=== PATIENT | male | born 1965 | race Caucasian/White ===

== ENCOUNTER 2022-01-23 00:30 | Observation (INO) | payer BC ==
[2022-01-23] MEDS ORDERED: MORPHINE 4 MG/ML SYR ONE ×3 (00:53→11:59)
[2022-01-23] MEDS ORDERED: ONDANSETRON 4 MG/2 ML VIAL ONE ×3 (00:54→12:58)
[2022-01-23 01:46] LABS: Absolute Lymphocytes (CBC) 1.4 K/uL (0.7-4.9); Hematocrit 42.5 % (39.6-49.0); Lymphocytes % 9.8 % (15.3-44.8); MPV 7.2 fL (7.6-11.3); RBC Red Blood Cell Count 4.75 M/uL (4.33-5.43)
[2022-01-23 01:57] LABS: ALT/SGPT 26 U/L (12-78); AST/SGOT 12 U/L (15-37); Albumin 3.6 g/dL (3.4-5.0); Alkaline Phosphatase 80 U/L (45-117); BUN Blood Urea Nitrogen 10 mg/dL (7-18); Bicarbonate 20 mmol/L (21-32); Bilirubin Total 0.4 mg/dL (0.2-1.0); Glucose Level 145 mg/dL (74-106); Lipase 92 U/L (73-393); Potassium 3.2 mmol/L (3.5-5.1); Protein, Total 6.8 g/dL (6.4-8.2); Sodium Level 136 mmol/L (136-145)
[2022-01-23 02:07] LABS: Bilirubin Direct < 0.1 mg/dL (0-0.2)
--- NOTE | 2022-01-23 02:21 | ER ---
Nurse's Notes [facility] Name: Curtis Patel Age: 56 yrs Sex: Male : 1965 Arrival Date: 01/23/2022 Time: 00:33 Bed 13 Private MD: Diagnosis: Acute cholecystitis Presentation: 01/23 00:40 Chief complaint: Patient states: he is having severe upper right abdominal pain x 2 bb hours. Coronavirus screen: At this time, the client does not indicate any symptoms associated with coronavirus-19. Ebola Screen: No symptoms or risks identified at this time. Initial Sepsis Screen: Does the patient meet any 2 criteria? Yes Does the patient have a suspected source of infection? No. Patient's initial sepsis screen is negative. Risk Assessment: Do you want to hurt yourself or someone else? Patient reports no desire to harm self or others. Onset of symptoms was January 23, 2022. 00:40 Method Of Arrival: Wheelchair bb 00:40 Acuity: VICENTA 3 bb Historical: - Allergies: 00:41 No Known Allergies; bb - Home Meds: 00:41 None [Active]; bb - PMHx: 00:41 None; bb - Immunization history:: Pfizer x 3. - Social history:: Smoking status: Patient denies any tobacco usage or history of. - Family history:: not pertinent. - Hospitalizations: : No recent hospitalization is reported. Screenin:07 Abuse screen: Denies threats or abuse. Denies injuries from another. Nutritional tk1 screening: No deficits noted. Tuberculosis screening: No symptoms or risk factors identified. Fall Risk None identified. Assessment: 01:07 General: Appears distressed, uncomfortable, well groomed, well developed, well tk1 nourished, Behavior is cooperative, appropriate for age, restless. Pain: Complains of pain in epigastric area, right upper quadrant and right lower quadrant Pain does not radiate. Pain currently is 10 out of 10 on a pain scale. Quality of pain is described as sharp, Pain began 1 day ago. Is intermittent. Neuro: Level of Consciousness is awake, alert, obeys commands, Oriented to person, place, time, situation, Appropriate for age Burring Wheel Operator are equal bilaterally Moves all extremities. Gait is steady, Speech is normal, Facial symmetry appears normal, Pupils are PERRLA. Cardiovascular: Capillary refill < 3 seconds is brisk in bilateral. Respiratory: Airway is patent Trachea midline Respiratory effort is even, unlabored. GI: Bowel sounds present X 4 quads. Abdomen is tender to palpation in epigastric area, right upper quadrant and right lower quadrant Reports lower abdominal pain, upper abdominal pain. : No deficits noted. No signs and/or symptoms were reported regarding the genitourinary system. EENT: No deficits noted. No signs and/or symptoms were reported regarding the EENT system. Derm: No deficits noted. No signs and/or symptoms reported regarding the dermatologic system. Musculoskeletal: No deficits noted. No signs and/or symptoms reported regarding the musculoskeletal system. 01:32 Reassessment: Lab called, patient's blood hemolyzed. Needs a redraw. Done and sent tk1 specimens to lab. 02:04 Reassessment: Patient states, pain to abdomen is getting worse. tk1 02:45 Reassessment: Patient and/or family updated on plan of care and expected duration. Pain tk1 level reassessed. Patient is alert, oriented x 3, equal unlabored respirations, skin warm/dry/pink. Patient is alert/active/playful, equal unlabored respirations, skin warm/dry/pink. Pain: Complains of pain in abdomen Pain currently is 8 out of 10 on a pain scale. 04:16 Reassessment: Patient resting with eyes closed. Respirations even and unlabored. Easily tk1 aroused. States, pain is more tolerable. VSS. Will continue to monitor. 12:19 General: pt transferred to the O.R. 5 Vital Signs: 00:40 BP 134 / 84; Pulse 63; Resp 20 S; Temp 98.2(O); Pulse Ox 100% on R/A; Weight 82.55 kg bb (R); Height 5 ft. 10 in. (177.80 cm) (R); Pain 10/10; 01:31 Pain 9/10; tk1 02:04 BP 138 / 89 LA Supine (auto/reg); Pulse 63 MON; Resp 18; Pulse Ox 100% on R/A; Pain tk1 10/10; 02:36 Pain 8/10; tk1 02:55 Pain 8/10; tk1 00:40 Body Mass Index 26.11 (82.55 kg, 177.80 cm) Vitals: 04:52 Cardiac Rhythm Assessment Regular Sinus rhythm. tk1 ED Course: 00:33 Patient arrived in ED. ja2 00:40 Bulmaro Santiago MD is Attending Physician. rn 00:41 Triage completed. bb 00:41 Arm band placed on Patient placed in an exam room, on a stretcher, on pulse oximetry. bb Family accompanied patient. 00:47 Inserted saline lock: 20 gauge in right antecubital area, using aseptic technique. al4 Blood collected. 01:05 Miguelina Bragg is Primary Nurse. tk1 01:07 Patient has correct armband on for positive identification. Bed in low position. Call tk1 light in reach. Adult w/ patient. Pulse ox on. NIBP on. 01:07 No provider procedures requiring assistance completed. tk1 01:14 US Abdomen Limited In Process Unspecified. EDMS 01:20 CBC with Diff Sent. tk1 01:25 CT Abd/Pelvis - IV Contrast Only In Process Unspecified. EDMS 02:20 Rodolfo Drummond MD is Hospitalizing Provider. rn 02:36 SARS-COV-2 RT PCR (Document "Date of Onset" if Symptomatic) Sent. tk1 02:55 SARS-COV-2 RT PCR (Document "Date of Onset" if Symptomatic) Sent. tk1 03:32 instructor nurse on. tk1 04:16 IV is patent, with fluids infusing freely, with good blood return. tk1 Administered Medications: 00:55 Drug: morphine 4 mg Route: IVP; Rate: 2 mg/min; Infused Over: 2 mins; Site: right tk1 antecubital; 01:31 Follow up: Pain 9/10 Adult; Response: Pain is decreased; RASS: Restless (+1) tk1 01:00 Drug: Zofran (Ondansetron) 4 mg Route: IVP; Rate: 2 mg/min; Infused Over: 2 mins; Site: tk1 right antecubital; 01:31 Follow up: Response: Nausea is decreased tk1 02:16 Drug: morphine 4 mg Route: IVP; Rate: 2 mg/min; Infused Over: 2 mins; Site: right tk1 antecubital; 02:36 Follow up: Pain 8/10 Adult; Response: Pain is decreased; RASS: Restless (+1) tk1 02:55 Follow up: Pain 8/10 Adult; Response: Pain is decreased tk1 02:35 Drug: Rocephin (cefTRIAXone) 1 grams Route: IV; Rate: calculated rate; Infused Over: 30 tk1 mins; Site: right antecubital; Delivery: Primary tubing; 03:25 Follow up: Response: No adverse reaction; IV Status: Completed infusion; IV Intake: [id number] 03:10 Drug: Flagyl (metroNIDAZOLE) 500 mg Volume: 100 ml; Route: IVPB; Rate: 200 ml/hr; tk1 Infused Over: 30 mins; Site: right antecubital; Delivery: Primary tubing; 04:16 Follow up: Response: No adverse reaction; IV Status: Completed infusion; IV Intake: tk1 100ml Intake: 03:25 IV: 50ml; Total: 50ml. tk1 04:16 IV: 100ml; Total: 150ml. tk1 Outcome: 02:20 Decision to Hospitalize by Provider. rn 12:20 Patient left the ED. cb5 Signatures: Dispatcher [employer] Nilsa Barnett RN Bulmaro Patel MD MD rn Alexander, Jessica ja2 Ledbetter, Alexis al4 Kirby, Tammie tk1 Kiara Navarro, ANGELITO RN cb5
--- NOTE | 2022-01-23 02:21 | EDPHYS ---
Physician Documentation [facility] Name: Curtis Patel Age: 56 yrs Sex: Male : 1965 Arrival Date: 01/23/2022 Time: 00:33 Bed 13 Private MD: ED Physician Bulmaro Santiago HPI: 01/23 00:46 This 56 yrs old Male presents to ER via Wheelchair with complaints of Abdominal Pain, rn Nausea/Vomiting. 00:46 The patient presents to the emergency department with nausea, vomiting, abdominal pain, rn of the epigastric area and right upper quadrant, described as burning. Onset: The symptoms/episode began/occurred just prior to arrival. Possible causes: unknown. The symptoms are aggravated by movement, pressure, The symptoms are alleviated by nothing. Associated signs and symptoms: Pertinent positives: abdominal pain, nausea, vomiting, Pertinent negatives: diarrhea, GI bleeding, hematuria. Severity of symptoms: At their worst the symptoms were moderate in the emergency department the symptoms are unchanged. The patient has not experienced similar symptoms in the past. The patient has not recently seen a physician. Reports right sided abd pain that began prior to arrival. States similar pain last week, went away almost immediately with antacids. Reports worse now, not getting better, assoc with nausea/vomiting. No fever. No chest pain/sob. No dark or bloody stool. Reports emesis is clear/yellow.. Historical: - Allergies: 00:41 No Known Allergies; bb - Home Meds: 00:41 None [Active]; bb - PMHx: 00:41 None; bb - Immunization history:: Pfizer x 3. - Social history:: Smoking status: Patient denies any tobacco usage or history of. - Family history:: not pertinent. - Hospitalizations: : No recent hospitalization is reported. ROS: 00:46 Constitutional: Negative for fever, chills, and weight loss, Eyes: Negative for injury, rn pain, redness, and discharge, Neck: Negative for injury, pain, and swelling, Cardiovascular: Negative for chest pain, palpitations, and edema, Respiratory: Negative for shortness of breath, cough, wheezing, and pleuritic chest pain, Abdomen/GI: + right sided abd pain and nausea/vomiting Back: Negative for injury and pain, : Negative for injury, bleeding, discharge, and swelling, MS/Extremity: Negative for injury and deformity, Skin: Negative for injury, rash, and discoloration, Neuro: Negative for headache, weakness, numbness, tingling, and seizure. Exam: 00:46 Constitutional: This is a well developed, well nourished patient who is awake, alert, rn appears uncomfortable Head/Face: Normocephalic, atraumatic. Eyes: Periorbital areas with no swelling, redness, or edema. Cardiovascular: Regular rate and rhythm. No pulse deficits. Respiratory: Lungs have equal breath sounds bilaterally, clear to auscultation and percussion. No rales, rhonchi or wheezes noted. No increased work of breathing, no retractions or nasal flaring. Abdomen/GI: soft, + right mid and upper quadrant tenderness, no rebound, + guarding, no masses Skin: Warm, dry MS/ Extremity: Pulses equal, no cyanosis. Neuro: Awake and alert, GCS 15 Vital Signs: 00:40 BP 134 / 84; Pulse 63; Resp 20 S; Temp 98.2(O); Pulse Ox 100% on R/A; Weight 82.55 kg bb (R); Height 5 ft. 10 in. (177.80 cm) (R); Pain 10/10; 01:31 Pain 9/10; tk1 02:04 BP 138 / 89 LA Supine (auto/reg); Pulse 63 MON; Resp 18; Pulse Ox 100% on R/A; Pain tk1 10/10; 02:36 Pain 8/10; tk1 02:55 Pain 8/10; tk1 00:40 Body Mass Index 26.11 (82.55 kg, 177.80 cm) MDM: 00:40 Patient medically screened. rn 01:23 ED course: U/S [facility] u/s of gallbladder shows sludge and stone but no thickening rn or PCF. . 02:19 Differential diagnosis: Nonspecific abd pain, gastritis, cholecystitis, pancreatitis, rn appendicitis, viral gastroenteritis, gastroenteritis. Data reviewed: vital signs, nurses notes, lab test result(s), radiologic studies, CT scan, ultrasound, and as a result, I will admit patient. Counseling: I had a detailed discussion with the patient and/or guardian regarding: the historical points, exam findings, and any diagnostic results supporting the discharge/admit diagnosis, lab results, radiology results, the need for further work-up and treatment in the hospital. Response to treatment: the patient's symptoms have mildly improved after treatment, and as a result, I will admit patient. Admission orders: after a detailed discussion of the patient's condition and case, the admit orders are written by me. 01/23 00:45 Order name: Basic Metabolic Panel; Complete Time: 02:15 rn 01/23 00:45 Order name: CBC with Diff; Complete Time: 03:40 rn 01/23 00:45 Order name: Hepatic Function; Complete Time: 02:15 rn 01/23 00:45 Order name: Lipase; Complete Time: 02:15 rn 01/23 00:48 Order name: Troponin High Sensitivity; Complete Time: 02:15 rn 01/23 01:51 Order name: Manual Differential; Complete Time: 03:40 EDMS 01/23 00:45 Order name: CT Abd/Pelvis - IV Contrast Only rn 01/23 00:45 Order name: US Abdomen Limited rn 01/23 02:00 Order name: CREATININE WHOLE BLOOD; Complete Time: 02:15 EDMS 01/23 02:16 Order name: SARS-COV-2 RT PCR (Document "Date of Onset" if Symptomatic); Complete Time: rn 03:40 01/23 07:28 Order name: CBC with Automated Diff EDMS 01/23 07:53 Order name: Basic Metabolic Panel EDMS 01/23 07:53 Order name: Liver (Hepatic) Function EDMS 01/23 00:45 Order name: IV Saline Lock; Complete Time: 01:19 rn 01/23 00:45 Order name: Labs collected and sent; Complete Time: 01:19 rn 01/23 00:45 Order name: NPO; Complete Time: 01:18 rn 01/23 00:48 Order name: EKG; Complete Time: 00:48 rn 01/23 00:48 Order name: EKG - Nurse/Tech; Complete Time: 03:25 rn Administered Medications: 00:55 Drug: morphine 4 mg Route: IVP; Rate: 2 mg/min; Infused Over: 2 mins; Site: right tk1 antecubital; 01:31 Follow up: Pain 9/10 Adult; Response: Pain is decreased; RASS: Restless (+1) tk1 01:00 Drug: Zofran (Ondansetron) 4 mg Route: IVP; Rate: 2 mg/min; Infused Over: 2 mins; Site: tk1 right antecubital; 01:31 Follow up: Response: Nausea is decreased tk1 02:16 Drug: morphine 4 mg Route: IVP; Rate: 2 mg/min; Infused Over: 2 mins; Site: right tk1 antecubital; 02:36 Follow up: Pain 8/10 Adult; Response: Pain is decreased; RASS: Restless (+1) tk1 02:55 Follow up: Pain 8/10 Adult; Response: Pain is decreased tk1 02:35 Drug: Rocephin (cefTRIAXone) 1 grams Route: IV; Rate: calculated rate; Infused Over: 30 tk1 mins; Site: right antecubital; Delivery: Primary tubing; 03:25 Follow up: Response: No adverse reaction; IV Status: Completed infusion; IV Intake: [id number] 03:10 Drug: Flagyl (metroNIDAZOLE) 500 mg Volume: 100 ml; Route: IVPB; Rate: 200 ml/hr; tk1 Infused Over: 30 mins; Site: right antecubital; Delivery: Primary tubing; 04:16 Follow up: Response: No adverse reaction; IV Status: Completed infusion; IV Intake: tk1 100ml Disposition Summary: 01/23/22 02:20 Hospitalization Ordered Hospitalization Status: Inpatient Admission rn Provider: Rodolfo Drummond rn Condition: Stable rn Problem: new rn Symptoms: have improved rn Bed/Room Type: Standard rn Location: [facility] ER HOLD(01/23/22 03:42) cg Room Assignment: ERHOLD-(01/23/22 03:42) cg Diagnosis - Acute cholecystitis rn Forms: - Medication Reconciliation Form rn - SBAR form rn Signatures: Dispatcher [employer] Nilsa Barnett RN RN Bulmaro Alvarado MD MD rn Garcia, Cindy, RN RN Miguelina Bragg tk1 Corrections: (The following items were deleted from the chart) 00:48 00:46 Constitutional: This is a well developed, well nourished patient who is awake, rn alert, appears uncomfortable Head/Face: Normocephalic, atraumatic. Eyes: Periorbital areas with no swelling, redness, or edema. Cardiovascular: Regular rate and rhythm. No pulse deficits. Respiratory: Lungs have equal breath sounds bilaterally, clear to auscultation and percussion. No rales, rhonchi or wheezes noted. No increased work of breathing, no retractions or nasal flaring. Abdomen/GI: Soft, non-tender, with normal bowel sounds. No distension or tympany. No guarding or rebound. No evidence of tenderness throughout. rn : 02:20 Telemetry/MedSurg (Inpatient) rn cg :42 02:20 rn lupillo
[2022-01-23] MEDS ORDERED: METRONIDAZOLE 500mg IVPB 500 MG/100 ML BAG IV ONE (02:29)
[2022-01-23] MEDS ORDERED: CEFTRIAXONE 1000 MG/VIAL ONE (02:30)
[2022-01-23] MEDS ORDERED: NA CHLORIDE 0.9% 50 ML ONE (02:30)
[2022-01-23 03:25] LABS: Blood Morphology Comment NOT SEEN (NOT SEEN); Platelet Estimate ADEQ
[2022-01-23] MEDS ORDERED: MORPHINE 4 MG/ML SYR IV PRN (05:17)
[2022-01-23] MEDS: D5 0.45 NS 1,000 ML IV SCH ×3 (05:17→17:00)
[2022-01-23] MEDS ORDERED: ONDANSETRON 4 MG/2 ML VIAL IV PRN (05:17)
[2022-01-23 05:19] VITALS: BMI 26.0
[2022-01-23] MEDS ORDERED: D5 0.45 NS 1,000 ML IV ONE ×2 (06:05→12:00)
[2022-01-23 07:26] LABS: Absolute Lymphocytes (CBC) 0.6 K/uL (0.7-4.9); Hematocrit 47.6 % (39.6-49.0); MPV 7.2 fL (7.6-11.3)
[2022-01-23 07:50] LABS: Albumin 3.8 g/dL (3.4-5.0); Bilirubin Direct 0.1 mg/dL (0-0.2); Bilirubin Total 0.5 mg/dL (0.2-1.0); Potassium 4.2 mmol/L (3.5-5.1); Protein, Total 7.7 g/dL (6.4-8.2)
--- NOTE | 2022-01-23 07:51 | RAD REPORT ---
EXAM DESCRIPTION: US - Abdomen Exam Limited - 01/23/2022 1:14 am CLINICAL HISTORY: ABD PAIN COMPARISON: No comparisons FINDINGS: Gallbladder size is normal. Gallbladder is filled with sludge. A 7 millimeter size gallsto ne is present within the lumen of the gallbladder. There is no wall thickening or pericholecystic flu id. No common duct stone or biliary tree dilatation identified. IMPRESSION: A single 7 millimeter gallstone is seen within the gallbladder packed with sludge. No biliary tree abnormality.
[2022-01-23] MEDS ORDERED: INFLUENZA VACCINE (for 6+ mo) 0.5 ML DOSE IMVAC ONE (08:00)
[2022-01-23] MEDS ORDERED: PIPERACIL/TAZO 3.375 GM VIAL IV ONE (08:12)
[2022-01-23] MEDS ORDERED: NA CHLORIDE 0.9% 100 ML IV ONE (08:12)
[2022-01-23] MEDS: PIPER TAZO 3.375 GM in NA CHLORIDE 0.9% 100 ML IV SCH ×2 (08:16→17:00)
[2022-01-23] MEDS ORDERED: Ringers Lactate 1,000 ML IV ONE (12:24)
[2022-01-23] MEDS ORDERED: propofoL 200 MG/20 ML VIAL IV ONE (12:55)
[2022-01-23] MEDS ORDERED: MIDAZOLAM HCL 2 MG/2 ML INJ ONE (12:55)
[2022-01-23] MEDS ORDERED: LIDOCAINE 2% MPF 5 ML VIAL ONE (12:56)
[2022-01-23] MEDS ORDERED: FENTANYL CITR 250 MCG/5 ML ONE (12:56)
[2022-01-23] MEDS ORDERED: ROCURONIUM 50 MG/5 ML VIAL IV ONE (12:57)
[2022-01-23] MEDS ORDERED: GLYCOPYRROLATE 0.2 MG/ML SYR ONE (12:57)
[2022-01-23] MEDS ORDERED: dexAMETHasone 10 MG/ML VIAL ONE (13:11)
[2022-01-23] MEDS ORDERED: EPHEDRINE SULF 50 MG/ML VIAL ONE (13:37)
--- NOTE | 2022-01-23 14:36 | RAD REPORT ---
EXAM DESCRIPTION: CT - Abdomen Pelvis W Contrast - 01/23/2022 6:47 am CLINICAL HISTORY: The patient is 56 years old and is Male; right sided abd pain;Abd pain TECHNIQUE: Axial computed tomography images of the abdomen and pelvis with intravenous contrast. S agittal and coronal reformatted images were created and reviewed. This CT exam was performed using one or more of the following dose reduction techniques: automated exposure control, adjustment of t he mA and/or kV according to patient size, and/or use of iterative reconstruction technique. COMPARISON: No relevant prior studies available. FINDINGS: Lung bases: Unremarkable. No mass. No consolidation. ABDOMEN: Liver: Unremarkable. No mass. Gallbladder and bile ducts: There is gallbladder wall thickening and/or pericholecystic inflammat ory changes which can be seen with cholecystitis. No ductal dilation. Pancreas: Unremarkable. No mass. No ductal dilation. Spleen: Unremarkable. No splenomegaly. Adrenals: Unremarkable. No mass. Kidneys and ureters: Simple cysts in the kidneys. ACR White Paper guidelines (Herrafael, et al. JACR 2018; 15(2):264-273) suggest no follow-up is necessary. No hydronephrosis. Stomach and bowel: Unremarkable. No obstruction. No mucosal thickening. PELVIS: Appendix: The appendix is normal. Bladder: Unremarkable. No mass. Reproductive: Prostate is enlarged. ABDOMEN and PELVIS: Intraperitoneal space: Unremarkable. No free air. No significant fluid collection. Bones/joints: Disc bulges at L3-4 and L4-5. No acute fracture. No dislocation. Soft tissues: Unremarkable. Vasculature: Unremarkable. No abdominal aortic aneurysm. Lymph nodes: Unremarkable. No enlarged lymph nodes. IMPRESSION: 1. There is gallbladder wall thickening and/or pericholecystic inflammatory changes wh ich can be seen with cholecystitis. Correlate with right upper quadrant ultrasound if clinically in dicated. 2. Additional non-emergent findings as above. Electronically signed by: Arvind Roy MD 01/23/2022 2:03 AM SHERIFF Due to temporary technical issues with the PACS/Fluency reporting system, reports are being signed by the in house radiologists without review as a courtesy to insure prompt reporting. The interpreting radiologist is fully responsible for the content of the report.
--- NOTE | 2022-01-23 14:45 | P.OP ---
Preoperative diagnosis: Acute Calculous Cholecystitis Postoperative diagnosis: Acute Calculous Cholecystitis Primary procedure: Laparoscopic Cholecystectomy with ICG Cholangiography Anesthesia: GETA + local Estimated blood loss: <10cc Specimen: gallbladder Findings: distended tense GB, black bile, stone @ neck, rind Complications: None Transferred to: Recovery Room Condition: Good
[2022-01-23] MEDS ORDERED: MEPERIDINE HCL 25 MG/ML SYR ONE (15:02)
[2022-01-23] MEDS ORDERED: HYDROCODONE/APAP 7.5/325 MG TAB PO PRN (15:03)
[2022-01-23] MEDS: INSULIN -REGULAR HUMAN 50 UNIT/0.5 ML ML SQ SCH ×2 (15:41→20:26)
--- NOTE | 2022-01-24 00:02 | HP ---
Date of Admission: 01/23/2022 History Of Present Illness: The patient is a 56-year-old male who presents with a 2-day history of r ight upper quadrant epigastric abdominal pain, which is severe, associated with nausea, vomiting. He has not had similar episodes before in the past, brought in the ER. He had significant pain at that point after eating greasy meal. He denies any other symptomatology. No change in bowel or bladder habits. No sick contacts. No recent travel. Past Medical History: Negative. Past Surgical History: He has only had orthopedic surgery related to fractures of his wrists and upp er extremities. He has had a tonsillectomy. Allergies: NO KNOWN DRUG ALLERGIES. Home Medications: None. Social History: He has gotten COVID vaccination. He denies smoking, recreational drug use and drink s alcohol only socially. Family History: Reviewed, noncontributory. No recent hospitalizations. Review of Systems: Ten-point review of systems other than HPI, denies. Physical Examination: Vital Signs: At the time of my examination, his vital signs were a BMI of 26. His blood pressure 13 1/79, pulse 73, respiratory rate 18, temperature 98.2. General: He is awake, alert, and oriented. Psychiatric: Appropriate, conversive. HEENT: He is normocephalic. Sclerae icteric. Mucous membranes are moist. Oropharynx clear. Neck: Supple without JVD. Chest: Normal expansion and excursion. Cardiovascular: Regular rhythm. Pulmonary: Clear to auscultation bilaterally. Abdomen: Soft with positive epigastric right upper quadrant tenderness to palpation. Mild positive Smith sign. The remainder of his abdominal exam is unremarkable. Extremities: No clubbing, cyanosis, or edema. Skin: Warm and dry. Laboratory Data: Revealed a white blood cell count of 18.4, hemoglobin is 15.8, hematocrit 47.6, otilio telet count was 314, neutrophils were 92%. His sodium 136, potassium 4.2, chloride 108, carbon dioxi de 25, BUN 9, creatinine 1.1, glucose is 158, total bilirubin 0.5, direct component 0.1, AST 17, ALT 33, alkaline phosphatase 93. His lipase is 92. His COVID was negative. He had imaging performed, w hich included an ultrasound of the right upper quadrant, which showed a single 7 mm gallstone seen wi thin the gallbladder packed with sludge. No biliary tree abnormality. He additionally had a CT scan of the abdomen and pelvis, which was officially read as gallbladder wall thickening and pericholecys tic inflammatory changes, which can be seen with cholecystitis. Correlate with right upper quadrant ultrasound if indicated. Assessment And Plan: This is a 56-year-old male who comes in with signs and symptoms of acute calcul ous cholecystitis. 1.IV fluid hydration. 2.Antibiotic coverage. 3.I have explained the risks, benefits, and alternatives of laparoscopic possible open cholecystecto my with ICG, indocyanine green cholangiography including, but not limited to bleeding, infection, dam age to surrounding tissues, injury to bile ducts, intestines, need further operation and procedures. The patient agrees to proceed as indicated. We will give Zosyn 3.375 IV. Patient did receive Rocep hin as well. AMBER/RIGOBERTO Voice ID: [id number]
--- NOTE | 2022-01-24 00:26 | OP ---
Date of Procedure: 01/23/2022 Surgeon: Rodolfo Drummond MD, Preoperative Diagnosis: Acute calculous cholecystitis. Postoperative Diagnosis: Acute calculous cholecystitis. Procedure: Laparoscopic cholecystectomy with ICG (indocyanine green cholangiography). Anesthesia: General endotracheal plus local with 0.25% Marcaine. Estimated Blood Loss: Less than 10 mL. Specimen: Gallbladder. Findings: 1.Distended tense gallbladder. 2.Black bile contained within distended tense gallbladder. 3.Stone impacted at neck of gallbladder. 4.The patient had inflammatory rind and significant inflammatory changes and thickening of the gallb ladder wall over the anterior gallbladder. 5.The patient had gangrenous changes to the near fundus area of the gallbladder. 6.The patient's gallbladder was partially intrahepatic with some minor oozing at the beginning of th e procedure. Complications: None. Disposition: The patient was transferred to the recovery room in good condition. Procedure In Detail: After informed consent was obtained, the patient was brought to the operating r oom, prepped and draped in the usual fashion after adequate anesthesia was achieved. A supraumbilica l area was anesthetized with 0.25% Marcaine and sharply incised. A 5 mm trocar was placed under dire ct visualization without evidence of complication. Insufflation obtained to 15 mmHg. There was no i njury to vital structures upon entry into the abdomen. Two additional trocars were placed, both in t he upper abdomen, 1 in the epigastrium and 1 in the right upper quadrant. Both of these were similar ly anesthetized and sharply incised. A 5 mm trocar was placed under direct visualization without mike dence of complication. The umbilical trocar was then up-sized to a 12 mm under direct visualization evidence of complication. The patient was positioned head up right-side up position and the gallblad loreto's position rotated towards the patient's right shoulder. I attempted to grasp the patient's gall bladder, but it was tense and unable to be grasped at this time. Therefore, a decompression needle w as brought in. There was some dark dusky necrosis appearing to the near fundus medial aspect of the gallbladder. I opted to cannulate through this area as it appeared thin and friable. Dark black theodora e was returned, which was thick and viscous at this time. After this was completely evacuated, I cou ld grasp the gallbladder at this point. There was oozing from the gallbladder prior to manipulation of it along the lower inferior curvature of the gallbladder and a minimal amount of blood in the abdo men contained prior to any manipulation. Trocar sites were clean at this time with no evidence of bl eeding or sequelae of bleeding. Therefore, I suspect the bleeding was coming from the edge of the ga llbladder near the area of significant inflammation. After the gallbladder was grasped and placed to wards the patient's right shoulder, I dissected and continued down to take the inflammatory rind of a nterior surface by using electrocautery on the anterior surface of the gallbladder. Using ICG cholan giography at this point, I visualized the common duct and cystic duct junction and dissected through the inflammatory rind and then a combination of blunt and electrocautery dissection allowed for visua lization of the cystic duct and cystic artery. These were both identified and a critical view of saf ety was obtained at this point after these 2 structures were skeletonized completely. At this point, the clips were brought and triple clips were placed on the proximal side of the cystic duct and sing ly on the distal side of the cystic duct and doubly on the cystic artery and singly on the distal asp ect of the cystic artery. These 2 structures were then ligated after confirmation with ICG cholangio graphy confirmed anatomic landmarks once again. After these were ligated, electrocautery was used to dissect the gallbladder from the hepatic fossa without evidence of complication. There was minimal bleeding requiring minimal hemostatic maneuvers from the entire gallbladder bed as the gallbladder wa s partially intrahepatic. The gallbladder was placed in EndoCatch bag, removed through the umbilical trocar, sent off for pathologic examination. The abdomen was copiously irrigated, suctioned out unt il completely dry. No additional hemostatic maneuvers were required. The clips were found to be in good anatomic position at the end of the procedure. The area was copiously irrigated one last time a nd then the patient was positioned back in a neutral position. I then closed the umbilical trocar si te using a Olaf-William suture passer. The gallbladder was sent off for pathologic examination of f the back table. The umbilical trocar site was closed using a 0 Vicryl in an interrupted fashion wi th a Olaf-William suture passer with good apposition of tissues. The abdomen was completely desuf flated under direct visualization without evidence of complication. All remaining trocars were remov ed under direct visualization after completely de-sufflating the abdomen. All skin incisions were co piously irrigated and closed with 4-0 Monocryl in a running fashion. Dermabond placed over top. The patient tolerated the procedure well without evidence of complication and transferred to PACU in goo d condition. All counts were correct at the end of the case. AMBER/RIGOBERTO Voice ID: [id number] Report ID: [id number]
[2022-01-24] MEDS: PIPER TAZO 3.375 GM in NA CHLORIDE 0.9% 100 ML IV SCH ×2 (01:14→08:43)
[2022-01-24 06:50] LABS: Bilirubin Total 0.5 mg/dL (0.2-1.0); Potassium 3.9 mmol/L (3.5-5.1); Protein, Total 6.2 g/dL (6.4-8.2)
[2022-01-24 07:01] LABS: Absolute Lymphocytes (CBC) 1.1 K/uL (0.7-4.9); Hematocrit 39.1 % (39.6-49.0); Lymphocytes % 6.1 % (15.3-44.8); MPV 7.5 fL (7.6-11.3); RBC Red Blood Cell Count 4.27 M/uL (4.33-5.43)
[2022-01-24] MEDS: INSULIN -REGULAR HUMAN 50 UNIT/0.5 ML ML SQ SCH (07:30)
[2022-01-24 08:03] VITALS: BP 99/60; TEMP 98.3
[2022-01-24] MEDS: D5 0.45 NS 1,000 ML IV SCH (08:44)
[2022-01-24 08:55] VITALS: O2SAT 97
[2022-01-24] MEDS ORDERED: POTASSIUM 25 MEQ EFFERV TAB PO ONE (09:00)
--- NOTE | 2022-01-24 09:00 | P.DS ---
Admission Date: 01/23/22 Discharge Date: 01/24/22 Disposition: ROUTINE DISCHARGE Discharge Condition: GOOD Reason for Admission: Cholecystitis - RUQ abdominal pain Consultations: none Procedures: Laparoscopic cholecystectomy with indocyanin green cholangiography - Problems (1) Cholecystitis Current Visit: Yes Status: Acute (2) Cholecystitis, acute with cholelithiasis Current Visit: Yes Status: Acute Brief History of Present Illness: Patient presented with a 2 day history of RUQ abdominal pain Hospital Course: Had cholecystectomy laparoscoipc with ICG, then did well post op, no pain, tolerated diet normal bowel function Vital Signs/Physical Exam: Temp Pulse Resp BP Pulse Ox 98.3 F 78 16 99/60 97 01/24/22 08:00 01/24/22 08:00 01/24/22 08:00 01/24/22 08:00 01/24/22 08:00 General: Alert, In no apparent distress, Cooperative Respiratory: Clear to auscultation bilaterally, Normal air movement Cardiovascular: Regular rate/rhythm Gastrointestinal: Soft and benign, Non-distended, No ascites, No masses, No rebound, No guarding, Other (minimal appropriate tenderness @ incisions) Integumentary: No rashes, No breakdown, No significant lesion, No tenderness/swelling, No erythema, No warmth, No cyanosis Neurological: Normal gait, Normal speech Laboratory Data at Discharge: WBC 17.90 K/uL (4.3-10.9) H 01/24/22 06:07 Hgb 13.2 g/dL (13.6-17.9) L D 01/24/22 06:07 Hct 39.1 % (39.6-49.0) L D 01/24/22 06:07 Plt Count 285 K/uL (152-406) 01/24/22 06:07 Sodium 138 mmol/L (136-145) 01/24/22 06:07 Potassium 3.9 mmol/L (3.5-5.1) 01/24/22 06:07 BUN 11 mg/dL (7-18) 01/24/22 06:07 Creatinine 1.23 mg/dL (0.55-1.3) 01/24/22 06:07 Glucose 154 mg/dL (74-106) H 01/24/22 06:07 Total Bilirubin 0.5 mg/dL (0.2-1.0) 01/24/22 06:07 AST 21 U/L (15-37) 01/24/22 06:07 ALT 37 U/L (12-78) 01/24/22 06:07 Alkaline Phosphatase 68 U/L (45-117) 01/24/22 06:07 Lipase 92 U/L (73-393) 01/23/22 01:25 Diet: [place] Activity: No lifting more than 10 lbs Followup: Rodolfo Drummond MD [ACTIVE - CAN ADMIT] - Unknown,U [Primary Care Provider] -
== END 2022-01-24 10:50 | disposition home or self-care (01) ==
LOC: ER 00:30 → ERHOLD 02:45 → INTOOBSV 02:45 → 2ND 14:22
PROVIDERS: ADMIT Surgery; ATTEND Surgery
PROC: BF50200 Other Imaging of Bile Ducts using Fluorescing Agent, Indocyanine Green Dye, Intraoperative (ICD-10-PCS; 2022-01-23)
PROC: 0FT44ZZ Resection of Gallbladder, Percutaneous Endoscopic Approach (ICD-10-PCS; principal; 2022-01-23 13:15)
DX: K80.00 Calculus of gallbladder with acute cholecystitis without obstruction (principal); K82.A1 Gangrene of gallbladder in cholecystitis; Z20.822 Contact with and (suspected) exposure to COVID-19
CPT/HCPCS: 96365; 85025 ×3; 80048 ×2; 36415 ×2; 82565; 82947 ×3; 80076 ×2; 88304; 84484; 83690; 80053; 74177; 76705; 94010; 96375; 99284; 47562; U0003; Q9967; J2704; J2543 ×4; J2250; J3010; J1100; J2175; G0378 ×4; J7799 ×5; J7120; J2405 ×3; C9776